=== PATIENT | female | born 1940 | race Caucasian/White ===

== ENCOUNTER 2025-02-21 17:51 | Inpatient (IN) | payer MEDICARE, OTHER ==
[~2025-02-21] VITALS: Ht 162.6 cm; Wt 75.7 kg
[2025-02-21 19:01] VITALS: BP 149/71
--- NOTE | 2025-02-21 19:15 | NUR ---
REPORT RECEIVED FROM SHANTI REN. ASSESSMENT AND VITAL SIGNS DONE. pt REPOSITIONED IN THE BED. MASON CARE DONE. STAT LOCK PLACED ON pt. SKIN CHECK DONE. pt DENIES ANY OTHER NEEDS AT THIS TIME. CALL LIGHT WITHIN REACH.
--- NOTE | 2025-02-21 19:28 | NUR ---
PT ADMITTED TO ROOM 116 AT 1854 TRANSFERRED FROM [facility] VIA STRETCHER ACOMPANIED BY TO [facility] EMT. ALERT, ORIENTED TO ALL. SL LAC PATENT. F/C NOT CHRONIC, INSERTED IN THE ER AT [facility] PATENT, DRAINING YELLOW COLORED URINE. ORAL CARE DONE BY PT. COOPERATIVE WITH ADMIT QUESTIONS.
[2025-02-21] MEDS ORDERED: OXYCODONE HCL 5 MG TAB PO PRN (19:30)
[2025-02-21] MEDS ORDERED: ACETAMINOPHEN 325 MG TAB PO PRN (19:30)
[2025-02-21] MEDS ORDERED: SODIUM CHLORIDE 0.9% 1,000 ML IV SCH (19:30)
[2025-02-21] MEDS ORDERED: MELATONIN 3 MG TAB PO PRN (21:00)
--- NOTE | 2025-02-21 23:00 | NUR ---
pt RESTING IN THE BED WITH EYES CLOSED. RR EVEN AND UNLABORED. CALL LIGHT WITHIN REACH.
[2025-02-22] VITALS (9 sets, daily range): BP systolic 103–151; BP diastolic 41–113
--- NOTE | 2025-02-22 01:12 | NUR ---
pt RESTING IN THE BED WITH EYES CLOSED. RR EVEN AND UNLABORED. CALL LIGHT WITHIN REACH.
--- NOTE | 2025-02-22 01:33 | NUR ---
LANDSCAPE ENGINEER OBTAINED VITALS AND I&O. PT STATES NO NEEDS AT THIS TIME. CALL LIGHT WITHIN REACH.
--- NOTE | 2025-02-22 03:25 | NUR ---
pt RESTING IN THE BED WITH EYES CLOSED. RR EVEN AND UNLABORED. CALL LIGHT WITHIN REACH.
--- NOTE | 2025-02-22 04:50 | NUR ---
pt CALLED TO HAVE A BM. pt USED THE BED LAINEZ AND HAD A BM. VITAL SIGNS DONE. pt RESTING IN THE BED. WARM BLANKET PROVIDED. pt DENIES ANY OTHER NEEDS AT THIS TIME. CALL LIGHT WITHIN REACH. WATER REFRESHED.
[2025-02-22 05:39] LABS: BASOPHILS 0.1 % (0.1-1.2); EOSINOPHILS 0.1 % (0.7-5.8); LYMPHOCYTES 7.5 % (19.3-51.7); MCH 31.2 PG (25.6-32.2); MCHC 34.8 g/dL (32.2-35.5); MCV 89.6 fL (79.4-94.8); MONOCYTES 9.0 % (4.7-12.5); NEUTROPHILS 82.9 % (34.0-71.1); RBC 3.46 M/uL (3.93-5.22)
[2025-02-22 05:54] LABS: ALT (SGPT) 27.0 U/L (14-59); AST (SGOT) 41.0 U/L (15-37); GLOMERULAR FILTRATION RATE,EST 88.0 mL/min (>60); PHOSPHORUS, INORGANIC 2.8 mg/dL (2.5-4.9); PROTEIN, TOTAL 6.1 g/dL (6.4-8.2); UREA NITROGEN 32.0 mg/dL (7-18)
--- NOTE | 2025-02-22 07:10 | NUR ---
RECIEVED REPORT FROM MIKAL ROMERO. PT RESTING IN BED WITH EYES CLOSED, BREATHING EVEN AND UNLABORED. CALL LIGHT WITHIN REACH.
--- NOTE | 2025-02-22 09:15 | NUR ---
Danisha was drowsy and not able to engage. Said healing prayers for her.
--- NOTE | 2025-02-22 09:28 | NUR ---
PT IS LAYING IN BED, RATES HER PAIN AT ABOUT A 3 OR 4 ON A 0 TO 10 PAIN SCALE. I FIXED HER PILLOW AND SHE SAID SHE WAS MORE COMFORTABLE. WENT OVER THE CALL LIGHT AND TV INSTRUCTIONS. TV IS NOT CURRENTLY ON - PT ASKED ME TO RAISE THE WINDOW CURTAIN. CALL LIGHT WITHIN REACH. PT IS NPO. SIDE RAILS ON BED UP AND BED LOW.
--- NOTE | 2025-02-22 09:46 | NUR ---
INTO SEE PATIENT. PERSONAL HEALTH INFORMATION REVIEWED. PATIENT LIVES ALONE IN A HOUSE IN [facility]. 1 STEP INTO THE HOME. DENIES ANY DIFFCULTY DOING IT PRIOR TO INJURY. PATIENT DOES NOT USE ANY DME. DOES NOT DRIVE. SHE HAS A SON AND DAUGHTER IN LAW THAT LIVE [place]. DENIES ANY DIFFCULTY PAYING UTLITIES OR OBATAING FOOD. NO OTHER CM NEEDS AT THIS TIME UNTIL AFTER SURGERY.
[2025-02-22] MEDS ORDERED: MULTI VITAMIN1 EACH PO (10:14)
--- NOTE | 2025-02-22 10:14 | NUR ---
MED REC COMPLETE
--- NOTE | 2025-02-22 11:19 | NUR ---
UR CLINICAL REVIEW: 2MN CRISTIANO, MEETS INPT FOR HIP FRACTURE IV FLUIDS, SURGICAL INTERVENTION NEEDED MEDICARE INPT 02/21/25 @ 1930 ORDER MATCHES REG NO AUTH REQUIRED PER MEDICARE RULES DC PLAN PENDING SURGICAL INTERVENTION AND RECOVERY.
--- NOTE | 2025-02-22 11:47 | NUR ---
PT IV PUMP ALARMING, RESTARTED IV FLUIDS ORDERED. PT WAS CHILLED, WARM BLANKETS X2 PROVIDED, TURNED HEAT UP IN THE ROOM. PT DENIES ANY OTHER NEEDS AT THIS TIME. CALL LIGHT IS WITHIN PATIENT REACH.
[2025-02-22] MEDS ORDERED: PHARMACY RENAL DOSE ADJUSTMENT 1 DOSE MISC PO SCH (12:00)
--- NOTE | 2025-02-22 12:17 | NUR ---
CHECKED ON PT. PT SLEEPING, VERY LITTLE IN MASON BAG. ROOM PICKED UP. PT'S BED LOW, SIDE RAILS UP, AND CALL LIGHT WITHIN REACH OF PT.
--- NOTE | 2025-02-22 12:45 | NUR ---
DR. AMARO TO BEDSIDE TO DISCUSS POC. PT REQUESTS ICE WATER, GIVEN. PT STATES NO FURTHER NEEDS AT THIS TIME, CALL LIGHT WITHIN REACH.
[2025-02-22] MEDS ORDERED: LIDOCAINE HCL 2% 20 MG/ML VIAL INJ ONE (13:08)
[2025-02-22] MEDS ORDERED: Ropivacaine HCl 0.5% 30 ML VIAL ONE (13:08)
[2025-02-22] MEDS ORDERED: SODIUM CHLORIDE 0.9% 20 ML IV ONE (13:08)
[2025-02-22] MEDS ORDERED: DEXAMETHASONE SOD PHOS 10 MG/ML VIAL ONE (13:11)
--- NOTE | 2025-02-22 13:28 | NUR ---
ANESTHESIA AT BEDSIDE PERFORMING BLOCK. CALL LIGHT WITHIN REACH.
--- NOTE | 2025-02-22 13:48 | NUR ---
PT TAKEN TO IMAGING BY IMAGING STAFF.
--- NOTE | 2025-02-22 14:30 | NUR ---
PATIENT IN BED AT THIS TIME. THIS LECTURER IN MARKETING GAVE PATIENT A COMPLETE BED BATH. THIS LECTURER IN MARKETING PROVIDED NEW BLANKETS AND NEW GOWN. CALL LIGHT WITHIN REACH, NO FURTHER NEEDS AT THIS TIME.
--- NOTE | 2025-02-22 14:43 | NUR ---
PT LAYING IN BED, READJUSTED HER PILLOW. STRAIGHTENED HER CORDS, RETURNED FROM CT EXAM. PT REPORTED BEING THIRSTY, BUT NOT VERY HUNGRY. GOT FRESH ICE WATER. CALL LIGHT WITHIN REACH, SIDE RAILS UP AND BED LOW.
--- NOTE | 2025-02-22 14:58 | NUR ---
PC to On-Call CARD DECORATOR, Felix, at the request of Primary RN Candi, to advise him that the pt is still c/o significant pain after receiving nerve blocks. He advised that he will return to re-block her.
--- NOTE | 2025-02-22 15:04 | NUR ---
In with pt for IV pump alarming occlusion, patient side. Pt straightened her arm back out. Restarted IV pump. Assessed pt's level of pain. She reports she is not having pain in her right hip, only her left and rates it a 6 out of 7. She states it is a shooting pain that sometimes shoots from her left to her right. I called KAILEE Washington again to update him on the pt's perceived pain, but he states he is already here at the hospital.
--- NOTE | 2025-02-22 18:49 | NUR ---
PT RESTING IN BED, REPORTS NO PAIN CURRENTLY. PT HAS TWO VISITORS CURRENTLY. GOT PT FRESH WATER. PT REQUESTING NOTHING ELSE AT THIS TIME.
--- NOTE | 2025-02-22 20:13 | NUR ---
AWAKE, PLAYING WITH CELL PHONE. ON ROOM AIR, LUNGS CLEAR DIM AT BASES. ABD SOFT, ARRON. BRUISED CHLOÉ JOAQUIN HEALING, FIRM TO TOUCH. EDEMA TO R LEG AND BILAT ANKLES. TELE#[address] SR W SVPB'S, DENIES CP OR PAIN. F/C PATENT, DRAINING LIGHT YELLOW URINE. ALERT AND ORIENTED, COOPERATIVE.
--- NOTE | 2025-02-22 20:55 | NUR ---
CONCRETE FINISHER APPRENTICE OBTIANED VITALS AND I&O. MASON EMPTIED. ICE WATER REFILLED. PT STATES NO FURTHER NEEDS AT THIS TIME. CALL LIGHT WITHIN REACH.
[2025-02-23] VITALS (13 sets, daily range): BP systolic 100–147; BP diastolic 40–60
--- NOTE | 2025-02-23 00:58 | NUR ---
resting, on room air, no s/sx distress. ivf infusing e/o problems
--- NOTE | 2025-02-23 01:46 | NUR ---
CROSS TIE TRAM LOADER OBTAINED VITALS AND I&O. PT STATES NO NEEDS AT THIS TIME. CALL [facility] WITHIN REACH.
[2025-02-23 05:32] LABS: BASOPHILS 0 % (0.1-1.2); EOSINOPHILS 0 % (0.7-5.8); LYMPHOCYTES 8.7 % (19.3-51.7); MCH 30.4 PG (25.6-32.2); MCHC 34.1 g/dL (32.2-35.5); MCV 89.4 fL (79.4-94.8); MONOCYTES 8.0 % (4.7-12.5); NEUTROPHILS 82.9 % (34.0-71.1); RBC 3.12 M/uL (3.93-5.22)
--- NOTE | 2025-02-23 05:35 | NUR ---
Awake, on room air, no c/o CP, tele#[address] SR w EVPB's. IVF infusing w/o problems. f/c patent, draining light yellow urine/ bruising on R side healing. tender R hip edema no changes, denies c/o pain. Helped with repositioning in bed. Has slept most of this shift
[2025-02-23 05:48] LABS: GLOMERULAR FILTRATION RATE,EST 91.0 mL/min (>60); UREA NITROGEN 27.0 mg/dL (7-18)
--- NOTE | 2025-02-23 07:27 | NUR ---
RECIEVED REPORT FROM MIKAL BROTHERS. PATIENT AWAKE IN BED, STATES NO CURRENT NEEDS. PATIENT REPOSITIONED. CALL LIGHT AT REACH.
--- NOTE | 2025-02-23 08:12 | NUR ---
pt resting in bed. pt sat up in bed for breakfast. toledo care complete. pt provided warm wash rag and chapstick. pt denies further needs at this time. call light in reach
[2025-02-23] MEDS ORDERED: MAGNESIUM SULFATE 2 GM/50 ML BAG IV ONE (09:00)
--- NOTE | 2025-02-23 09:28 | NUR ---
PT VITALS AND IS AND OS COMPLETE. PT UPDATED ON POC. PT PROVIDED ICE WATER. DENIES FURTHER NEEDS. CALL LIGHT IN REACH
--- NOTE | 2025-02-23 11:51 | NUR ---
pt up in bed filling out paperwork. pt denies needs at this time. call light in reach.
--- NOTE | 2025-02-23 13:21 | NUR ---
PT AWAKE IN BED, STATES SHE IS HAVING SHOOTING PAIN IN LLE, PRN PAIN MEDICATION GIVEN PER PT REQUEST. PT STATES R HIP CONTINUES TO BE NUMB. ICE WATER REFILLED PER PT REQUEST. PT STATES NO FURTHER NEEDS AT THIS TIME, CALL LIGHT WITHIN REACH.
--- NOTE | 2025-02-23 14:34 | NUR ---
PT ON THE PHONE. ICE WATER PROVIDED. PT DENIES NEEDS AT THIS TIME. CALL LIGHT IN REACH.
--- NOTE | 2025-02-23 16:28 | NUR ---
pt resting in bed. pt refuses repositioning at this time. pt declines needs at this time. call light in reach
--- NOTE | 2025-02-23 17:03 | NUR ---
PT EATING DINNER. VITALS AND IS AND OS COMPLETE. URINAL EMPTIED. BRIEF CHECKED, CLEAN AND DRY. PT DENIES REPOSITIONING AT THIS TIME. PT DENIES FURTHER NEEDS AT THIS TIME CALL LIGHT IN REACH
--- NOTE | 2025-02-23 18:25 | NUR ---
PT RESTING IN BED, REFUSES REPOSITIONING AT THIS TIME, NEW ICE WATER PROVIDED PER PT REQUEST. CALL LIGHT WITHIN REACH.
--- NOTE | 2025-02-23 20:28 | NUR ---
Pt on room air, lungs clear bilat, abd soft zachariah, SL RAC patent. bruising R side healing. R hip edema and tenderness, edema to ankles. SCDS in place. Tele#[address] Helpful with turning and repositioning. Medicated with Tylenol prior to repositioning. Aware of NPO status after midnight for am surgery, Surgical consent signed at this time. questions answered to her satisfaction
--- NOTE | 2025-02-23 21:21 | NUR ---
Pt c/o 03/07 R hip pain, was repositioned earlier and R leg crossed over towards L leg again, declined to have us reposition leg, explanation geiven. "I was ok until you guys moved med and straigthen up my legs". not receptive to teaching. scds in place, R hip/leg no changes from earlier assessment
--- NOTE | 2025-02-23 22:24 | NUR ---
CALMER, RESTING, EYES CLOSED, NO S/SX DISTRESS
--- NOTE | 2025-02-23 23:50 | NUR ---
pain med effective, awaken easily, IVF started. Pt aware of NPO status after midnight. oral swabs at bedside, teaching done. stated understanding. f/c scds in place, tele#[address] SR with ocassional SVPB's
[2025-02-24] VITALS (16 sets, daily range): BP systolic 123–160; BP diastolic 48–73
[2025-02-24] MEDS ORDERED: LACTATED RINGER'S 1,000 ML IV SCH
[2025-02-24] MEDS ORDERED: fentaNYL citrate 50 MCG/ML SDV IV PRN (00:15)
[2025-02-24] MEDS ORDERED: NALOXONE HCL 0.4 MG SYR IV PRN (00:15)
[2025-02-24] MEDS ORDERED: HYDROmorphone HCL 1 MG/ML SYR IV PRN (00:15)
--- NOTE | 2025-02-24 00:16 | NUR ---
NPO as this time, awake, IVF infusing w/o problems. f/c patent, scds in place, repositioned w/o problems
--- NOTE | 2025-02-24 02:29 | NUR ---
AWAKENS EASILY, NO C/O PAIN AT THIS TIME. REPOSITIONED. IVF INFUSING, NPO SCDS IN PLACE, F/C PATENT
--- NOTE | 2025-02-24 03:28 | NUR ---
C/O R LEG PAIN 04/07 MEDICATED WITH OXYCODONE 5MG ANS SMALL SIP OF WATER. PT IS NPO FOR AM BRADEN
[2025-02-24 05:29] LABS: BASOPHILS 0.3 % (0.1-1.2); EOSINOPHILS 3.3 % (0.7-5.8); LYMPHOCYTES 13.3 % (19.3-51.7); MCH 31.2 PG (25.6-32.2); MCHC 34.9 g/dL (32.2-35.5); MCV 89.2 fL (79.4-94.8); MONOCYTES 9.2 % (4.7-12.5); NEUTROPHILS 73.4 % (34.0-71.1); RBC 3.24 M/uL (3.93-5.22)
[2025-02-24 05:51] LABS: ALT (SGPT) 29.0 U/L (14-59); AST (SGOT) 31.0 U/L (15-37); GLOMERULAR FILTRATION RATE,EST 90.0 mL/min (>60); PROTEIN, TOTAL 5.5 g/dL (6.4-8.2); UREA NITROGEN 14.0 mg/dL (7-18)
--- NOTE | 2025-02-24 05:52 | NUR ---
resting, eyes closed, awakens easily, no c/o pain at thist tessie. goes back to sleep. IVF infusing. pt NPO does own oral care with oral swabs. f/c patent draining large amount yellow urine. scds in place. repositioned frequently tolerating fair
[2025-02-24] MEDS ORDERED: TRANEXAMIC ACID IN NACL,ISO-OS 1,000 MG/100 ML PIGGYBACK IV SCH ×2 (07:00→12:45)
[2025-02-24] MEDS ORDERED: CEFAZOLIN SODIUM 2 GM/20 ML SYR IV SCH ×2 (07:00→15:00)
--- NOTE | 2025-02-24 07:46 | NUR ---
RECIEVED REPORTS FROM MIKAL BROTHERS. PATIENT AWAKE IN BED, REPORTS PAIN TO BLE, PATIENT REQUEST THE NEXT AVAILABLE PAIN MEDICATION. PATIENT STATES NO FURTHER NEEDS, CALL LIGHT AT REACH.
[2025-02-24] MEDS ORDERED: BUPIVACAINE HCL 0.5% 30 ML VIAL ONE (08:57)
[2025-02-24] MEDS ORDERED: KETAMINE in NS 50 MG/5 ML SYR ONE (08:57)
[2025-02-24] MEDS ORDERED: LIDOCAINE HCL 2% 5 ML SDV ONE (08:57)
[2025-02-24] MEDS ORDERED: DEXAMETHASONE SOD PHOS 4 MG/ML VIAL ONE ×3 (08:57)
[2025-02-24] MEDS ORDERED: MAGNESIUM SULFATE 1 GM/2 ML VIAL ONE (09:09)
[2025-02-24] MEDS ORDERED: PHENYLEPHRINE HCL 10 MG/ML VIAL ONE (09:10)
--- NOTE | 2025-02-24 09:39 | NUR ---
PT OFF UNIT TO PROCEDURE.
[2025-02-24] MEDS ORDERED: TRANEXAMIC ACID IN NACL,ISO-OS 200 ML IV ONE (09:46)
[2025-02-24] MEDS ORDERED: SODIUM CHLORIDE 0.9% 1,000 ML IV ONE (10:15)
[2025-02-24] MEDS ORDERED: INTRA-ARTICULAR ANALGESIC INJECTION IAARTIC ONE (10:30)
[2025-02-24] MEDS ORDERED: GLYCOPYRROLATE 1 MG/5 ML MDV ONE (10:49)
--- NOTE | 2025-02-24 11:52 | NUR ---
02/24/25 Gudelia2 Stephanie Stevens 1141-PATIENT ARRIVED TO PACU ON RA AWAKE LAYING SUPINE ORIENTED TO PACU DENIES PAIN OR NAUSEA. SR HR 70'S IVF INFUSING. SPINAL LEVEL AT T10. DRESSING CDI. PALPABLE PEDAL PULSE. GOOD WARMTH AND CAP REFILL. PATIENT HAS A SORE PRIOR TO OR ON TOP OF RIGHT FOOT. MEDIHONEY AND ALLEVYN PLACED OVER SORE PER EUSEBIO MARTINEZ. 1150-XRAY CALLED
--- NOTE | 2025-02-24 12:13 | EKG ---
[facility] [address] [place], [place] [address] Signed Normal sinus rhythm Normal ECG Confirmed by Raven Nuno DO ([id number]) on 02/24/2025 12:13:34 PM Electronically Signed By: RAVEN NUNO DO 02/24/25 1213 PATIENT NAME: PURNIMA HOLLINGSWORTH Electrocardiogram DATE OF : 44 PHYSICIAN: RAVEN NUNO DO REPORT #: [id number] REPORT IS CONFIDENTIAL AND NOT TO BE RELEASED WITHOUT AUTHORIZATION
--- NOTE | 2025-02-24 12:40 | NUR ---
PT ARRIVES TO [facility], RECIEVED REPORT FROM ZENY. PT DENIES PAIN AT THIS TIME, STATES SHE IS MILDLY NAUSEAS, ANTINAUSEA MEDICATION GIVEN. VSS. PT STATES NO FURTHER NEEDS AT THIS TIME. CALL LIGHT WITHIN REACH. ICE PACK TO R HIP, JOSE CARLOS HOSE IN PLACE, SCDs IN PLACE, HEEL PROTECTORS IN PLACE, CPOX IN PLACE.
--- NOTE | 2025-02-24 14:36 | NUR ---
POST OP VITALS COMPLETED. PATIENT IS RESTING IN BED. PATIENT HAS CPOX IN PLACE. PATIENT REMAINS ON 2L VIA NC. PATIENT HAS SCDS IN PLACE. IV FLUID INFUSING. PATIENT DENIES ANY FURTHER NEEDS. CALL LIGHT IN REACH.
[2025-02-24] MEDS ORDERED: ACETAMINOPHEN 500 MG TAB PO SCH (15:00)
--- NOTE | 2025-02-24 16:42 | NUR ---
HOURLY ROUNDING. PATIENT SEEMS TO BE DOING WELL. WIPE AND LINEN CHANGE HAS BEEN COMPLETED.
--- NOTE | 2025-02-24 16:57 | NUR ---
PATIENT IS LYING IN BED WITH HOB ELEVATED. PATIENT WITH EYES OPEN AND RESPIRATIONS ARE EVEN AND UNLABORED. CALL LIGHT AND PERSONAL BELONGINGS ARE WITHIN REACH.
--- NOTE | 2025-02-24 17:10 | NUR ---
PATIENT IS LYING IN BED WITH HOB ELEVATED. PATIENT STATED NO WHEN THIS RN ASKED ABOUT PAIN. NC IN PLACE WITH THE CPOX AT BEDSIDE. PATIENT IS EATING DINNER. PATIENT STATED NO FURTHER NEEDS AT THIS TIME. CALL LIGHT AND PERSONAL BELONGINGS ARE WITHIN REACH. TV IS ON.
--- NOTE | 2025-02-24 20:28 | NUR ---
Pt awake, A&O to all, soft spoke. cooperativew with vitals, assessments and turning. on room air, dim lung sounds at bases. abd soft zachariah. LBM 02/22. f/c patent, f/c and angely care done. Dressing R hip with scant amount of shadowing dressing in place. scds, timothy hose in place. pillow between legs. took scheduled tylenol w/o problems, turned and repositioned. ice to R hip. tolerated well. IVf infusing w/o problems
[2025-02-24] MEDS ORDERED: SENNOSIDES 1 TAB PO SCH (21:00)
[2025-02-24] MEDS ORDERED: ASPIRIN 325 MG TAB PO SCH (21:00)
[2025-02-25] VITALS (10 sets, daily range): BP systolic 114–160; BP diastolic 54–98
--- NOTE | 2025-02-25 01:07 | NUR ---
eyes open, on room air, post op CPOX on at bedside. no c/o pain. ice to R hip. scds tedhose in place. IVF infusing wo problems
--- NOTE | 2025-02-25 01:35 | NUR ---
c/o l leg pain, medicated with Oxycodone. awake, f/c patent, scds timothy hose in place, dressing R hip, ice to area
--- NOTE | 2025-02-25 03:00 | NUR ---
resting, no s/x pain or distress. on room air. f/c patent. R leg dressing with old scant drainage, ice to R hip. buddys shana pettit.
[2025-02-25 05:27] LABS: BASOPHILS 0.1 % (0.1-1.2); EOSINOPHILS 0.1 % (0.7-5.8); LYMPHOCYTES 7.4 % (19.3-51.7); MCH 31.0 PG (25.6-32.2); MCHC 34.8 g/dL (32.2-35.5); MCV 89.1 fL (79.4-94.8); MONOCYTES 8.9 % (4.7-12.5); NEUTROPHILS 83.3 % (34.0-71.1); RBC 3.03 M/uL (3.93-5.22)
[2025-02-25 05:46] LABS: ALT (SGPT) 23.0 U/L (14-59); AST (SGOT) 25.0 U/L (15-37); GLOMERULAR FILTRATION RATE,EST 89.0 mL/min (>60); PROTEIN, TOTAL 5.3 g/dL (6.4-8.2); UREA NITROGEN 12.0 mg/dL (7-18)
--- NOTE | 2025-02-25 05:50 | NUR ---
awake, on room air, Dressing with old scant amount of drainage. edema tendernes R hip. scds, tedhose in place. f/c patent. care done. Repositioned in bed, IVF infusing w/o problems. No c/o pain, fresh fluids given
--- NOTE | 2025-02-25 06:54 | OR ---
[facility] [address], [place] [address] Signed DATE OF OPERATION: 02/24/2025 SURGEON: Arnulfo Junior MD PREOPERATIVE DIAGNOSIS: Right intertrochanteric hip fracture. POSTOPERATIVE DIAGNOSIS: Right intertrochanteric hip fracture. PROCEDURE PERFORMED: Right bipolar hemiarthroplasty. FRONT COUNTER ATTENDANT: Kandace Oro PA-C. Kandace was present and critical for all portions of procedure. ANESTHESIA: Spinal. BLOOD LOSS: 150 mL. IMPLANTS: Arya Echo FX fracture stem size 9, -3 head and a 50 bipolar. BRIEF HISTORY: Purnima is an 84-year-old female with pain in her hip after suffering a ground level fall. She did lay on the ground for 24 hours or so before she was found. She was seen at an outside hospital where she was noted to have rhabdomyolysis and a hip fracture. I agreed to transfer the patient here due to no orthopedic coverage. She was admitted by the Medicine Service and her system was flushed out with IV fluids. She was felt to be stable for surgery today. Risks, benefits, and alternatives were discussed with her and she understood and wished to proceed. DESCRIPTION OF PROCEDURE: Once consent was obtained, she was taken to the operating room. After adequate anesthesia she was placed in left lateral decubitus position. All downside pressure points were well padded. An axillary roll was placed. The right hip was then prepped and draped in a standard sterile fashion. The hip was approached through standard Electronically Signed By: ARNULFO JUNIOR MD 02/25/25 0654 PATIENT NAME: PURNIMA HOLLINGSWORTH OPERATIVE REPORT DATE OF : 44 REPORT #: [id number] PHYSICIAN: ARNULFO JUNIOR MD PCP: OTHER PCP REPORT IS CONFIDENTIAL AND NOT TO BE RELEASED WITHOUT AUTHORIZATION [facility] [address], [place] [address] Signed anterior lateral approach, carried through skin and subcutaneous tissue. The IT band was divided longitudinally. The vastus lateralis was then divided from the tip of the trochanter along the anterior femoral margin distally. Subperiosteally, this was elevated around to the level of the lesser trochanter. The gluteus minimus and capsule were split from the trochanter to the acetabular rim and cleared off the anterior fracture and soft tissue. This allowed us visualization of the fracture. I placed a 5 mm Shantz pin in the femoral head and with careful manipulation, we were able to dislocate it. Once this was accomplished, the femoral neck cut was made one fingerbreadth above the lesser trochanter which was fractured but relatively well positioned. The femoral head was then passed off the table. The acetabulum was cleaned of all debris and measured to a 50. The calcar was noted to be fractured down to the middle of the lesser trochanter, but again was relatively well positioned. We reduced that into position and clamped it with a bony tenaculum. We then passed two 1.7 mm cables around the calcar and around the lateral femur. This was then tightened to 50 kg of tension. This was clamped and the cable was cut. This held the calcar in good position. Once we got in that position we then opened up the proximal femur and found the canal with the Charnley awl. We then sequentially reamed up to an 11 and broached up to an 11. This was found to be well fitting. We were planning on a cemented stem, so we selected the 9 stem. Because of the fracture I elected not to trial off the broach but placed the stem. The cement restrictor was then placed in the distal femoral canal and the canal was cleaned under pulse lavage and packed with hydrogen peroxide soaked sponge. The cement was mixed and reached proper consistency, was placed into the canal and pressurized as best we could given the fracture. The stem was then positioned until it was seated flush with the cut, held until the cement was hardened, which was about 14 minutes. Once this was completed, we placed a -3 trial and a 50 head on, the stem reduced it. She had good leg lengths, good range of motion and no instability. We then carefully re-dislocated the hip, removed the trials and placed the final components. The trunnion was cleaned before placing the head on it. The hip was again reduced, taken through range of motion and found to be good. The wound was then copiously irrigated with one bottle of Surgiphor followed by normal saline. The periarticular soft tissues were injected with 80 mL ropivacaine, Toradol mixture. The capsule was then closed using #2 FiberWire. The vastus and IT band layers were closed independently using #2 Stratafix. Subcutaneous tissue was closed in layers using 2-0 Monocryl and 0 Stratafix, the skin with pia. Wound was dressed with an Acticoat-7 dressing. She tolerated the procedure well. All sponge, needle, and instrument counts were correct. Arnulfo Junior MD Electronically Signed By: ARNULFO JUNIOR MD 02/25/25 0654 PATIENT NAME: PURNIMA HOLLINGSWORTH OPERATIVE REPORT DATE OF : 44 REPORT #: [id number] PHYSICIAN: ARNULFO JUNIOR MD PCP: OTHER PCP REPORT IS CONFIDENTIAL AND NOT TO BE RELEASED WITHOUT AUTHORIZATION [address] [place] [address] Signed [facility][id number] Copies: ~ Electronically Signed By: ARNULFO JUNIOR MD 02/25/25 0654 PATIENT NAME: PURNIMA HOLLINGSWORTH OPERATIVE REPORT DATE OF : 44 REPORT #: [id number] PHYSICIAN: ARNULFO JUNIOR MD PCP: OTHER PCP REPORT IS CONFIDENTIAL AND NOT TO BE RELEASED WITHOUT AUTHORIZATION
--- NOTE | 2025-02-25 07:33 | NUR ---
PT RESTING IN BED QUIET ALERT AT TIME OF SHIFT REPORT. SHE AGREES SHE IS COMFORTABLE AND IS DRINKING FRESH H20. PT DENIES NEEDS AT THIS TIME. DISCUSSED PLANS TO GET UP OUT OF BED THIS SHIFT, WORK WITH PT/OT, AND CONTROL PAIN. PT VERBALIZES UNDERSTANDING DENIES NEEDS AT THIS TIME
--- NOTE | 2025-02-25 08:57 | NUR ---
ALERT AND ORIENTED. DISCUSSED DC NEEDS. STATES SHE PREFERS TO GO HOME WHEN DC'D. SHE IS NOT INTERESTED IN HOME HEALTH WHEN DC'D. STATES SHE HAS FAMILY WHO CAN ASSIST WITH TRANSPORT.
--- NOTE | 2025-02-25 09:55 | NUR ---
PT TOLERATES SMALL BREAKFAST AGREES SHE IS FULL. PT/OT IN TO WORK WITH HER PT IS COOPERATIVE ABLE TO STAND FOR PIVOT TRANSFER. PT MOVED TO CHAIR DOING EXCERSIZES AT THIS TIME. NEEDED ITEMS ARE AT CHAIRSIDE. PT TOLERATES THERAPY WELL SORE BUT NO C/O PAIN
--- NOTE | 2025-02-25 10:13 | NUR ---
HOURLY ROUNDING. JOSE MARTIN PATIENT ROOM CALL LIGHT PLACED WITHIN REACH NO REQUEST FROM PATIENT AT THIS TIME
--- NOTE | 2025-02-25 10:36 | NUR ---
PT CONTINUES UP IN THE CHAIR. SHE AGREES SHE IS COMFORTABLE P/T WASN'T PAINFUL SHE HAD ANTICIPATED. SHE IS DOING HER EXERCIZES INSTRUCTED BY P/T. CALL LIGHT AND NEEDED ITEMS IN REACH
--- NOTE | 2025-02-25 12:33 | NUR ---
SPOKE WITH PATIENT REGARDING DC PLAN. SHE IS CURRENTLY AGREEABLE TO SNF IF SHE IS ABLE TO GO TO [place]. CHART [facility]. SPOKE WITH GEO AT [facility] AND THEY HAVE REVIEWED CHART AND CAN ACCEPT PATIENT FOR SNF TOMORROW, 02/26/2025
--- NOTE | 2025-02-25 12:34 | NUR ---
PT SITTING UP IN BED EATING NOON MEAL AGREES SHE HAS EVERYTHING SHE NEEDS. CALL LIGHT AND NEEDED ITEMS IN REACH
--- NOTE | 2025-02-25 16:16 | NUR ---
PT SITTING UP IN BED VISITING HER SON DENIES DISCOMFORTS OR NEEDS OF
--- NOTE | 2025-02-25 19:30 | NUR ---
REPORT RECEIVED FROM DAY SHIFT RN. PT LYING IN BED ALERT AND ORIENTED. DENIES NEEDS. WHITE BOARD UPDATED. CALL LIGHT IN REACH.
--- NOTE | 2025-02-25 21:20 | NUR ---
EVENING ASSESSMENT COMPLETE. SCHEDULED MEDS ADMIN PER EMAR. PT REPORTS RIGHT HIP PAIN 11/05. SCHEDULED TYLENOL GIVEN. PT DENIES NAUSEA. RIGHT HIP DRESSING INTACT WITH OLD DRAINAGE NOTED. CMS INTACT. SCD'S/TEDS/ICE PACK IN PLACE. PUREWICK PATENT WITH QS CLEAR YELLOW URINE. 2PA TO REPOSITION IN BED. VS AND I&O OBTAINED. PT DENIES QUESTIONS OR CONCERNS. CALL LIGHT IN REACH. BED ALARM FOR SAFETY.
--- NOTE | 2025-02-25 22:34 | NUR ---
PT REPORTS RIGHT HIP PAIN 5/10. PRN FOR PAIN ADMIN PER EMAR. NO FURTHER NEEDS.
[2025-02-26] VITALS (9 sets, daily range): BP systolic 121–142; BP diastolic 48–87
--- NOTE | 2025-02-26 01:38 | NUR ---
PT AWAKE IN BED. CONFUSED ON LOCATION. PT REORIENTS EASILY. 2PA TO REPOSITION IN BED. RIGHT HIP ASSESSMENT UNCHANGED. PT DENIES NEEDS. CALL LIGHT IN REACH. BED ALARM FOR SAFETY. CALL LIGHT IN REACH.
--- NOTE | 2025-02-26 03:57 | NUR ---
PT RESTING IN BED WITH EYES CLOSED. RESPIRATIONS EVEN. CALL LIGHT IN REACH. BED ALARM FOR SAFETY.
[2025-02-26 05:14] LABS: BASOPHILS 0.2 % (0.1-1.2); EOSINOPHILS 3.6 % (0.7-5.8); LYMPHOCYTES 10.9 % (19.3-51.7); MCH 31.2 PG (25.6-32.2); MCHC 34.3 g/dL (32.2-35.5); MCV 90.8 fL (79.4-94.8); MONOCYTES 8.4 % (4.7-12.5); NEUTROPHILS 76.4 % (34.0-71.1); RBC 2.92 M/uL (3.93-5.22)
[2025-02-26 05:28] LABS: GLOMERULAR FILTRATION RATE,EST 90.0 mL/min (>60); UREA NITROGEN 10.0 mg/dL (7-18)
--- NOTE | 2025-02-26 07:22 | NUR ---
PT AWAKE RESTING IN BED AT TIME OF SHIFT REPORT. DENIES NEEDS AT THIS TIME AGREES SHE IS COMFORTABLE. FRESH H20 TO BEDSIDE. PT AGREES THAT PAIN MED IN PREP FOR P/T WOULD BE A GOOD IDEA AGREES TO NOTIFY STAFF OF NEEDS THROUGHOUT THE DAY. CALL LIGHT IN LAP
--- NOTE | 2025-02-26 08:04 | NUR ---
CALLED [facility] TO SCHEDULE FOR TOMORROW AT 10:00. SPOKE WITH GEO AT [facility] AND INFORMED OF PLAN FOR DC TO THEIR FACILITY TOMORROW.
--- NOTE | 2025-02-26 08:12 | NUR ---
HOURLY ROUNDING. NURSE MENTIONED PATIENT BEING ON A BEDPAN FOR BM. CHECKED ON PATIENT, NO BM AT THIS MOMENT. PATIENT IS NOW READY TO EAT BREAKFEAST IN BED. CALL LIGHT HAS BEEN PLACED WITHIN REACH
--- NOTE | 2025-02-26 08:28 | NUR ---
UPDATED PATIENT ABOUT INABILITY TO SET UP TRANSPORT UNTIL TOMORROW. STATES SHE THOUGHT HER SON WAS TAKING HER. REMINDED HER SHE WAS VERY WEAK YESTERDAY AND WOULD LIKELY NOT BE ABLE TO GET IN AND OUT OF A CAR. VERBALIZES UNDERSTANDING.
--- NOTE | 2025-02-26 09:49 | NUR ---
PT CONTINUES TO BE COMFORTABLE IN BED ANTICIPATE P/T ANYTIME. DR AMARO CALLED TO REQUEST PERMISSION TO CHANGE SEROUS SATURATED HIP DRESSING THAT IS NO LONGER STICKING, MESSAGE WAS LEFT DRESSING WAS CHANGED. WOUND IS WELL APPROXIMATED WITH MAVERICK INTACT NO REDNESS, GENERALIZED SWELLING PRESENT. BHARAT WOUND SKIN HAS PINK AREA WHERE A BLISTER HAS POPPED APPROX 50 CENT PIECE SIZE.
--- NOTE | 2025-02-26 10:21 | NUR ---
PT NOT AVAILABLE FOR VISIT. PROVIDED PRAYER.
--- NOTE | 2025-02-26 11:19 | NUR ---
SPOKE WITH P/T ABOUT THERAPY TODAY THEY REPORT PT DIDN'T DO WELL TODAY AND WAS UNABLE TO STAND. DID NOT SEEM MOTIVATED. SHE WAS LEFT IN BED. PT HAS BEEN DOING HER EXERCISES INDEPENDENTLY. PT MOVED TO THE CHAIR USING SHADIA, SHE PREFERRED TO STAY IN BED BUT VERBALIZED UNDERSTANDING OF NEED TO BE UP OUT OF BED. COFFEE PROVIDED PT AGREES SHE IS COMFORTABLE.
--- NOTE | 2025-02-26 11:28 | NUR ---
VISITED DURING SPIRITUAL CARE ROUNDS. PT IN OVERALL GOOD SPIRITS, NO IMMEDIATE NEEDS. SEWING MACHINES SALESPERSON PROVIDED SUPPORTIVE PRESENCE, HOSPITALITY, PRAYER. PT EXPRESSED GRATITUDE, HOPE.
--- NOTE | 2025-02-26 12:05 | NUR ---
HOURLY ROUNDING. PATIENT IS SITTING IN RECLINER CHAIR READY FOR LUNCH NO REQUEST AT THIS TIME FROM PATIENT. CALL LIGHT HAS BEEN PLACED WITHIN REACH
--- NOTE | 2025-02-26 12:30 | NUR ---
LIAT FROM DR AMARO OFFICE IN TO SEE PT WHO IS CURRENTLY IN THE CHAIR SELF FEEDING HER LUNCH
--- NOTE | 2025-02-26 13:08 | NUR ---
HOURLY ROUNDING. PATIENT IS SITTING IN RECLINER CHAIR JUST FINISHED LUNCH, NO CLEANING HER FACE WITH A WARM WASH CLOTH. NO FURTHER REQUEST FROM PATIENT AT THIS TIME. CALL LIGHT HAS BEEN PLACED WITHIN REACH
--- NOTE | 2025-02-26 13:40 | NUR ---
PATIENT CALLED TO GO TO BATHROOM. THIS RN [facility] AND XIMENA BROTHERS IN TO ASSIST PATIENT TO BSC. PATIENT PIVOT TRANSFERED TO BSC AND BACK TO CHAIR, 2PA FWW. PATIENT DID VERY WELL WITH TRANSFER. BHARAT CARE DONE. NEW PUREWICK AND ATTENDS IN PLACE. CALL LIGHT IN REACH. NO FURTHER NEEDS AT THIS TIME.
--- NOTE | 2025-02-26 14:09 | NUR ---
P/T REPORTS THEY REAPPROACHED PT AND SHE WAS ABLE TO STAND AND DID WELL. STAFF ASSIST PT TO TRANSFER TO BSC AFTERWARD AND AGAIN SHE DOES WELL. PT REMAINS IN THE CHAIR AT THIS TIME AGREES SHE IS COMFORTABLE
--- NOTE | 2025-02-26 15:12 | NUR ---
PT RESTING IN THE CHAIR DOING EXERCISIZES. SHE HAS BEEN UP TO [facility] [place] AND HAD A LARGE BM. AGREES IT HAS BEEN A GOOD DAY, PAIN IS WELL CONTROLLED. PT STATES HER HIP HARDLY HURTS AT ALL EXCEPT SOMETIMES WHEN SHE TRIES TO STAND OR MOVES IT
--- NOTE | 2025-02-26 16:02 | NUR ---
HOURLY ROUNDING. PATIENT CALLED, PATIENT WANTED TO GET BACK IN BED. I NOTIFIED PATIENT THAT DINNER WAS COMMING IN A HOUR. PATIENT REFUSED SITTING IN HER RECLINER CHAIR FOR DINNER. SON IS AT BEDSIDE. PATIENT WAS A TWO PERSON ASSIST WITH A PIVOT. NO FURTHER REQUEST FROM PATIENT AT THIS TIME
--- NOTE | 2025-02-26 17:13 | NUR ---
PT REPOSITIONED UP IN BED FOR EVENING MEAL. SON IS AT BEDSIDE VISITING ACTIVELY
--- NOTE | 2025-02-26 19:20 | NUR ---
RECEIVED REPORT. PT RESTING IN BED. NO CONCERNS AT THIS TIME. CALL LIGHT WITH IN REACH.
--- NOTE | 2025-02-26 22:45 | NUR ---
PT RESTING WITH EYES CLOSED. AWAKENS WHEN I AM IN ROOM. PT STATES SHE HAS NO NEEDS. CALL LIGHT WITHIN REACH.
--- NOTE | 2025-02-26 22:57 | NUR ---
PT INCONTINENT OF URINE, PUREWICK PLACED AFTER PERICARE AT TIME OF ASSESSMENT. PT TOLERATED THIS WELL.
--- NOTE | 2025-02-27 00:01 | NUR ---
PT RESTING WITH EYES CLOSED, BREATHING EVEN. CALL LIGHT WITH IN REACH.
--- NOTE | 2025-02-27 00:29 | NUR ---
ANSWERED CALL LIGHT. PT UP TO BEDSIDE COMMODE WITH 2PA AND FWW. AFTER VOID PT BACK TO BED. PT WITH SCDS ON, HEEL PROTECTORS, FRESH ICE IN ICE PACK, AND FRESH WATER AT BEDSIDE. PT HAS NO FURTHER NEEDS AT THIS TIME. CALL LIGHT WITH IN REACH.
--- NOTE | 2025-02-27 01:56 | NUR ---
PT RESTING WITH EYES CLOSED. BREATHING EVEN. CALL LIGHT WITH IN REACH.
--- NOTE | 2025-02-27 03:39 | NUR ---
PT RESTING WITH EYES CLOSED. BREATHING EVEN. CALL LIGHT WITH IN REACH.
[2025-02-27 05:59] VITALS: BP 147/70
--- NOTE | 2025-02-27 06:04 | NUR ---
PT AWAKE RESTING IN BED. ASSESSMENT COMPLETE. NEW PUREWICK PLACED PERICARE DONE. PT DENIES PAIN. SMALL AMOUNT SEROUS DRAINAGE ON DRESSING. JOSE CARLOS HOSE, SCDS AND HEEL PROTECTORS IN PLACE. FRESH ICE IN ICE PACK. FRESH ICE WATER AT BEDSIDE. PT HAS NO FURTHER NEEDS AT THIS TIME. CALL LIGHT WITH IN REACH.
--- NOTE | 2025-02-27 07:18 | NUR ---
REPORT RECEIVED FROM MIKAL PATRICK. PATIENT IS REQUESTING USE OF THE BSC. PATIENT ASSISTED X2 RNs TO SIT ON EDGE OF BED AND TRANSFER WITH FWW TO BSC. PATIENT HAS LARGE BOWEL MOVEMENT. THIS RN AND XIMENA KUMARI ASSIST PATIENT WITH BHARAT-CARE, APPLY NEW BRIEF, AND TRANSFER PATIENT TO RECLINER. BLE ELEVATED, ICE PACK TO RIGHT HIP, WARM BLANKET PROVIDED. CALL LIGHT IN REACH.
--- NOTE | 2025-02-27 07:18 | NUR ---
SPOKE WITH PATIENT REGARDING DC PLAN FOR HER TO RETURN TO [facility] AT 1000 THIS MORNING VIA WHEELCHAIR VAN. VERBALIZES UNDERSTANDING. DISCUSSED IMM LETTER, WAIVES 4 HOUR WAIT PERIOD AND COPY OF LETTER PROVIDED.
--- NOTE | 2025-02-27 08:08 | NUR ---
MEDICATION ADMINISTERED, SEE MAR. ASSESSMENT COMPLETE. PATIENT IS RESTING IN RECLINER WITH BLE ELEVATED EATING BREAKFAST. PATIENT DOES REQUEST PUREWICK BE PLACED - PROVIDED. PATIENT COMPLAINS OF RIGHT SHOULDER/ARM PAIN RATED 3/10 BUT WOULD JUST LIKE TO STICK TO HER SCHEDULED TYLENOL. DECLINES ICE OR HEAT PACKS. MD PRATT ARRIVES TO ASSESS AND VISIT PATIENT. ALL QUESTIONS AND CONCERNS ANSWERED. PATIENT HAS NO OTHER REQUESTS. CALL LIGHT AND PERSONAL BELONGINGS IN REACH.
[2025-02-27] MEDS ORDERED: ASPIRIN325 MG PO (08:12)
[2025-02-27] MEDS ORDERED: OXYCODONE HCL5 MG PO (08:13)
[2025-02-27] MEDS ORDERED: SENNA LAX8.6 MG PO (08:13)
[2025-02-27] MEDS ORDERED: ACETAMINOPHEN500 MG PO (08:13)
--- NOTE | 2025-02-27 08:41 | NUR ---
PATIENT WAS ASSISTED TO THE BED SIDE COMODE. PATIENT WAS PROVIDED ORAL CARE AND A WARM WASHCLOTH. LINEN WAS CHANGED. PATIENT WAS SAT UP BREAKFAST. PATIENTS CALL LIGHT IN REACH AND NO FURTHER NEEDS AT THIS TIME.
--- NOTE | 2025-02-27 09:05 | NUR ---
ORDERS, PASRR FAXED TO [facility]. REPORT NUMBER GIVEN TO NURSING STAFF TO CALL REPORT.
[2025-02-27 09:51] VITALS: BP 147/50
--- NOTE | 2025-02-27 10:07 | NUR ---
REFAXED ORDERS TO [facility], THEY DID NOT RECEIVE THEM INITIALLY
== END 2025-02-27 09:55 | DRG 522 ==
LOC: MS 17:51
PROVIDERS: Specialist; ADMIT Student in an Organized Health Care Education/Training Program; ATTEND Student in an Organized Health Care Education/Training Program
PROC: 0SRR019 Replacement of Right Hip Joint, Femoral Surface with Metal Synthetic Substitute, Cemented, Open Approach (ICD-10-PCS; principal; 2025-02-24 10:00)
DX: S72.141A Displaced intertrochanteric fracture of right femur, initial encounter for closed fracture (principal); I10 Essential (primary) hypertension; M16.11 Unilateral primary osteoarthritis, right hip; Z66 Do not resuscitate; R42 Dizziness and giddiness; R94.4 Abnormal results of kidney function studies; W18.30XA Fall on same level, unspecified, initial encounter
CPT/HCPCS: 01214; 36415; 72170; 73502; 73700; 80048; 80053; 82550; 83735; 84100; 85025; 93005; 93010; 93306; 97110; 97530; A9270; C1713; C1776; J0690; J1100; J2003; J2371; J2405; J2704; J2795; J3475; J3490; J7030; J7121